=== PATIENT | male | born 1960 | race Two or more races ===

== ENCOUNTER 2019-04-18 06:50 | Outpatient (CLI) | payer OTHER | END 2019-04-18 06:54 | disposition home or self-care (01) | LOC: EDBD 06:50 → LAB 06:50 | DX: E11.9 Type 2 diabetes mellitus without complications (principal); E78.1 Pure hyperglyceridemia ==

== ENCOUNTER 2019-04-18 07:44 | Outpatient (CLI) | payer OTHER | END 2019-04-18 08:00 | disposition home or self-care (01) | LOC: EDBD 07:44 → NUCLEAR 07:44 | DX: R07.89 Other chest pain (principal); R06.02 Shortness of breath; R94.31 Abnormal electrocardiogram [ECG] [EKG] | CPT/HCPCS: 78452; 93017; A9500 ==